=== PATIENT | male | born 2000 | race Caucasian/White ===

== ENCOUNTER 2019-08-05 06:54 | Emergency (ER) | payer OTHER ==
[2019-08-05] MEDS ORDERED: ADENOSINE 6 MG/ 2ML VIAL IV ONE ×2 (07:07→07:11)
[2019-08-05] MEDS ORDERED: NA CHLORIDE 0.9% 1,000 ML ONE (07:07)
[2019-08-05 07:26] LABS: Absolute Lymphocytes (CBC) 4.3 K/uL (0.7-4.9); Basophils % 0.9 % (0-1.3); Hematocrit 47.7 % (39.6-49.0); Lymphocytes % 36.2 % (15.3-44.8); MPV 7.5 fL (7.6-11.3); RBC Red Blood Cell Count 5.19 M/uL (4.33-5.43)
[2019-08-05 07:53] LABS: BUN Blood Urea Nitrogen 12 mg/dL (7-18); Bicarbonate 25 mmol/L (21-32); Glucose Level 96 mg/dL (74-106); Magnesium 1.9 mg/dL (1.8-2.4); NT PRO-BNP 31 pg/mL (<125); Potassium 3.1 mmol/L (3.5-5.1); Sodium Level 144 mmol/L (136-145); Troponin (Emerg Dept Use Only) < 0.02 ng/mL (0.0-0.045)
--- NOTE | 2019-08-05 08:00 | EKG ---
Test Date: 2019-08-05 Test Time: 07:05:39 Estimator Lumber: SUN MEASUREMENT RESULTS: Intervals: Rate: 226 AK: QRSD: 94 QT: 192 QTc: 372 [place]: P: AK: QRS: 86 T: 269 INTERPRETIVE STATEMENTS: Supraventricular tachycardia Incomplete right bundle branch block Marked ST abnormality, possible inferior subendocardial injury Marked ST abnormality, possible anterolateral subendocardial injury Abnormal ECG No previous ECG available for comparison Electronically Signed On 08-05-19 07:59:45 CDT by Tanner Leo
--- NOTE | 2019-08-05 08:00 | EKG ---
Test Date: 2019-08-05 Test Time: 07:14:13 Distribution Operations Manager: SUN MEASUREMENT RESULTS: Intervals: Rate: 102 FL: 132 QRSD: 106 QT: 326 QTc: 424 [place]: P: 53 FL: 132 QRS: 76 T: 19 INTERPRETIVE STATEMENTS: Sinus tachycardia Nonspecific ST abnormality Abnormal ECG Compared to ECG 08/05/2019 07:05:39 Supraventricular tachycardia no longer present Incomplete right bundle-branch block no longer present ST (T wave) deviation still present Electronically Signed On 08-05-19 07:59:43 CDT by Tanner Leo
--- NOTE | 2019-08-05 08:42 | RAD REPORT ---
EXAM DESCRIPTION: RAD - Chest Single View - 08/05/2019 7:40 am CLINICAL HISTORY: Arrhythmia, palpitations COMPARISON: None. TECHNIQUE: AP portable chest image was obtained 0722 hours . FINDINGS: Lungs are clear. Heart and vasculature are normal. No measurable pleural effusion and no p neumothorax. No acute bony abnormality seen. No acute aortic findings suspected. Resuscitation paddle s overlie the upper right chest and lower lateral left chest IMPRESSION: No acute cardiopulmonary process.
[2019-08-05] MEDS ORDERED: POTASSIUM CL SA 10 MEQ TAB PO ONE (08:46)
--- NOTE | 2019-08-05 09:00 | ER ---
Nurse's Notes [facility] Name: Anoop Mcguire Age: 18 yrs Sex: Male : 2000 Arrival Date: 08/05/2019 Time: 06:58 Bed 2 Private MD: Diagnosis: Supraventricular tachycardia Presentation: 08/05 07:00 Acuity: NICK 1 aa5 07:00 Method Of Arrival: Ambulatory aa5 07:14 Presenting complaint: Patient states: [place] my heart beating really fast and a little sg light headed, pt denies pain, denies N/V/D/Fever at this time. Transition of care: patient was not received from another setting of care. Onset of symptoms was August 05, 2019. Risk Assessment: Do you want to hurt yourself or someone else? Patient reports no desire to harm self or others. Initial Sepsis Screen: Does the patient meet any 2 criteria? HR > 90 bpm. Does the patient have a suspected source of infection? No. Patient's initial sepsis screen is negative. Care prior to arrival: None. Triage Assessment: 07:00 General: Appears in no apparent distress. uncomfortable, slender, well developed, sv Behavior is calm, cooperative, appropriate for age. Pain: Denies pain. Neuro: Level of Consciousness is awake, alert, obeys commands, Oriented to person, place, time, situation, Moves all extremities. Full function Gait is steady. Cardiovascular: Patient's skin is warm and dry. Rhythm is SVT. Respiratory: Respiratory effort is even, unlabored, Respiratory pattern is regular, symmetrical. Derm: Skin is pink, warm \T\ dry. Historical: - Allergies: 08:23 No Known Allergies; sv - PMHx: 08:23 None; sv - PSHx: 08:23 None; sv - Immunization history:: Adult Immunizations up to date. - Social history:: Smoking status: Patient/guardian denies using tobacco, Patient uses street drugs, marijuana. - Family history:: not pertinent. - Ebola Screening: : No symptoms or risks identified at this time. - Hospitalizations: : No recent hospitalization is reported. Screenin:30 Abuse screen: Denies threats or abuse. Denies injuries from another. Nutritional sv screening: No deficits noted. Tuberculosis screening: No symptoms or risk factors identified. Fall Risk None identified. Assessment: 07:30 Reassessment: Patient appears in no apparent distress at this time. Patient and/or sv family updated on plan of care and expected duration. Pain level reassessed. Patient is alert, oriented x 3, equal unlabored respirations, skin warm/dry/pink. Patient denies pain at this time. Patient states feeling better. Patient states symptoms have improved. Cardiovascular: Rhythm is sinus rhythm. 08:55 Reassessment: Patient appears in no apparent distress at this time. Patient and/or sv family updated on plan of care and expected duration. Pain level reassessed. Patient is alert, oriented x 3, equal unlabored respirations, skin warm/dry/pink. Patient denies pain at this time. Patient states feeling better. Patient states symptoms have improved. Cardiovascular: Rhythm is sinus rhythm. 09:13 Reassessment: Patient appears in no apparent distress at this time. Patient and/or sv family updated on plan of care and expected duration. Pain level reassessed. Patient is alert, oriented x 3, equal unlabored respirations, skin warm/dry/pink. Vital Signs: 07:00 Pulse 214; Resp 20 S; Pulse Ox 100% on R/A; aa5 07:02 BP 158 / 129; sv 07:14 BP 140 / 95; Pulse 113; Resp 21; Pulse Ox 98% on 2 lpm NC; Weight 67.13 kg; Height 5 sv ft. 10 in. (177.80 cm); 07:30 BP 132 / 91; Pulse 92; Resp 23; Pulse Ox 100% on 2 lpm NC; sv 08:00 BP 124 / 83; Pulse 91; Resp 24; Pulse Ox 100% on 2 lpm NC; sv 08:30 BP 111 / 66; Pulse 89; Resp 19; Pulse Ox 100% ; sv 07:14 Body Mass Index 21.24 (67.13 kg, 177.80 cm) sv ED Course: 06:58 Patient arrived in ED. ag3 06:59 Arm band placed on Patient placed in an exam room, on a stretcher. aa5 07:00 Kyle Schwartz, RN is Primary Nurse. jl7 07:00 cardiac monitor on. Pulse ox on. NIBP on. Head of bed elevated. sv 07:01 Oswald Thomas MD is Attending Physician. rn 07:05 Initial lab(s) drawn, by me, sent to lab. Inserted saline lock: 18 gauge in right sv antecubital area, using aseptic technique. Blood collected. Flushed right antecubital with 5 ml normal saline. 07:05 Oxygen administration via nasal cannula \T\ 2L/min. sv 07:15 Triage completed. sg 07:15 Arm band placed on right wrist. sg 07:17 Primary Nurse role handed off by Kyle Schwartz RN sv 07:17 Giovanna Winter RN is Primary Nurse. sv 07:30 Patient has correct armband on for positive identification. sv 07:55 XRAY Chest (1 view) In Process Unspecified. EDMS 09:13 No provider procedures requiring assistance completed. IV discontinued, intact, sv bleeding controlled, No redness/swelling at site. Pressure dressing applied. Administered Medications: 07:09 Drug: Adenocard 6 mg Route: IVP; Site: right antecubital; sv 07:12 Follow up: Response: No adverse reaction sv 07:09 Drug: NS 0.9% 1000 ml Route: IV; Rate: 1000 ml; Site: right antecubital; sv 08:00 Follow up: Response: No adverse reaction; IV Status: Completed infusion; IV Intake: sv 1000ml 07:12 Drug: Adenocard 12 mg Route: IVP; Site: right antecubital; sv 07:13 Follow up: Response: No adverse reaction; Marked relief of symptoms sv 08:51 Drug: Potassium Chloride 40 mEq Route: PO; sv 09:13 Follow up: Response: No adverse reaction sv Intake: 08:00 IV: 1000ml; Total: 1000ml. sv Outcome: 08:57 Discharge ordered by . rn 09:13 Discharged to home ambulatory, with friend. sv 09:13 Condition: stable 09:13 Discharge instructions given to patient, Instructed on discharge instructions, follow up and referral plans. Demonstrated understanding of instructions, follow-up care. 09:14 Patient left the ED. sv Signatures: Dispatcher [employer] EDCT Giovanna Winter RN RN sv Gay, Steven, RN RN sg Nieto, Roman, MD MD rn Calderon, Audri RN RN aa5 Kyle Schwartz RN RN jl7 Danii Wilkes ag3 Corrections: (The following items were deleted from the chart) 07:16 07:14 Acuity: NICK 1 zaida aa5 07:16 07:14 Method Of Arrival: Ambulatory sg aa5 08:24 07:14 BP 140 / 95; Pulse 113bpm; Resp 21bpm; Pulse Ox 98% 2 lpm Nasal Cannula; sv sv
--- NOTE | 2019-08-05 09:01 | EDPHYS ---
Physician Documentation [facility] Name: Anoop Mcguire Age: 18 yrs Sex: Male : 2000 Arrival Date: 08/05/2019 Time: 06:58 Bed 2 Private MD: ED Physician Oswald Thomas HPI: 08/05 08:12 This 18 yrs old Unknown Male presents to ER via Ambulatory with complaints of Irregular rn Pulse. 08:12 The patient presents with a history of heart racing. Context: The symptoms occur at rn rest. Onset: The symptoms/episode began/occurred 1 hour(s) ago. Duration: The patient or guardian reports a single episode, that is still ongoing. Modifying factors: The symptoms are aggravated by nothing. The symptoms are alleviated by nothing. Associated signs and symptoms: Pertinent positives: lightheadedness, Pertinent negatives: cough, fever, SOB. Severity of symptoms: At their worst the symptoms were moderate in the emergency department the symptoms are unchanged. The patient has experienced similar episodes in the past. Reports has had several episodes in past of palpitations, usually only lasts a few minutes, has been evaluated for this, never captured on ECG or monitor, has had neg w/u including ECHO. Denies famhx of cardiac problems. Was fishing today when began, now for about an hour. No chest pain. . Historical: - Allergies: 08:23 No Known Allergies; sv - PMHx: 08:23 None; sv - PSHx: 08:23 None; sv - Immunization history:: Adult Immunizations up to date. - Social history:: Smoking status: Patient/guardian denies using tobacco, Patient uses street drugs, marijuana. - Family history:: not pertinent. - Ebola Screening: : No symptoms or risks identified at this time. - Hospitalizations: : No recent hospitalization is reported. ROS: 08:12 Constitutional: Negative for fever, chills, and weight loss, Eyes: Negative for injury, rn pain, redness, and discharge, Neck: Negative for injury, pain, and swelling, Cardiovascular: + palpitations Respiratory: Negative for shortness of breath, cough, wheezing, and pleuritic chest pain, Abdomen/GI: Negative for abdominal pain, nausea, vomiting, diarrhea, and constipation, MS/Extremity: Negative for injury and deformity, Skin: Negative for injury, rash, and discoloration, Neuro: Negative for headache, weakness, numbness, tingling, and seizure. Exam: 08:12 Constitutional: This is a well developed, well nourished patient who is awake, alert, rn seems anxious Head/Face: Normocephalic, atraumatic. Eyes: Pupils equal round and reactive to light, extra-ocular motions intact. Lids and lashes normal. Conjunctiva and sclera are non-icteric and not injected. Cornea within normal limits. Periorbital areas with no swelling, redness, or edema. ENT: MMM, no oral trauma Cardiovascular: +tachycardic, regular, no murmur Respiratory: Lungs have equal breath sounds bilaterally, clear to auscultation. No increased work of breathing, no retractions or nasal flaring. Abdomen/GI: soft, non-tender Skin: Warm, dry MS/ Extremity: Pulses equal, no cyanosis. Neurovascular intact. Full, normal range of motion. Equal circumference. Neuro: Awake and alert, GCS 15, oriented to person, place, time, and situation. Cranial nerves II-XII grossly intact. Motor strength 5/5 in all extremities. Sensory grossly intact. Cerebellar exam normal. Normal gait. Vital Signs: 07:00 Pulse 214; Resp 20 S; Pulse Ox 100% on R/A; aa5 07:02 BP 158 / 129; sv 07:14 BP 140 / 95; Pulse 113; Resp 21; Pulse Ox 98% on 2 lpm NC; Weight 67.13 kg; Height 5 sv ft. 10 in. (177.80 cm); 07:30 BP 132 / 91; Pulse 92; Resp 23; Pulse Ox 100% on 2 lpm NC; sv 08:00 BP 124 / 83; Pulse 91; Resp 24; Pulse Ox 100% on 2 lpm NC; sv 08:30 BP 111 / 66; Pulse 89; Resp 19; Pulse Ox 100% ; sv 07:14 Body Mass Index 21.24 (67.13 kg, 177.80 cm) sv MDM: 07:01 Patient medically screened. rn 08:55 Differential diagnosis: arrythmia, dehydration, stress disorder. Data reviewed: vital rn signs, nurses notes, lab test result(s), EKG, radiologic studies, plain films, and as a result, I will discharge patient. Counseling: I had a detailed discussion with the patient and/or guardian regarding: the historical points, exam findings, and any diagnostic results supporting the discharge/admit diagnosis, lab results, radiology results, the need for outpatient follow up, to return to the emergency department if symptoms worsen or persist or if there are any questions or concerns that arise at home. Response to treatment: the patient's symptoms have resolved after treatment, the patient's condition has returned to base line, the patient is now symptom free, and as a result, I will discharge patient. Special discussion: I discussed with the patient/guardian in detail that at this point there is no indication for admission to the hospital. It is understood, however, that if the symptoms persist or worsen the patient needs to return immediately for re-evaluation. Based on the history and exam findings, there is no indication for further emergent testing or inpatient evaluation. I discussed with the patient/guardian the need to see the sugar coating hand for further evaluation of the symptoms. ED course: Patient with neg w/u other than low potassium, no indication for admission, cardioverted with adenosine, with normalization of ECG, and asymptomatic. Will dc home with f/u, told him to get in with electrophysiology as this is likely to happen again and last longer in future. Return precautions given and understood. . 08/05 07:15 Order name: Basic Metabolic Panel; Complete Time: 08:08/05 07:15 Order name: CBC with Diff 08/05 07:15 Order name: Magnesium; Complete Time: 08:08/05 07:15 Order name: NT PRO-BNP; Complete Time: 08:08/05 07:15 Order name: Troponin (emerg Dept Use Only); Complete Time: 08:08/05 07:15 Order name: TSH; Complete Time: 08:08/05 07:15 Order name: XRAY Chest (1 view); Complete Time: 08:50 08/05 07:15 Order name: EKG; Complete Time: 07:16 08/05 07:15 Order name: T4 Free; Complete Time: 08:08/05 08:11 Order name: EKG Electrocardiogram; Complete Time: 10:26 EDMS 08/05 07:15 Order name: Cardiac monitoring; Complete Time: 07:18 08/05 07:15 Order name: EKG - Nurse/Tech; Complete Time: 07:18 rn 08/05 07:15 Order name: IV Saline Lock; Complete Time: 07:18 rn 08/05 07:15 Order name: Labs collected and sent; Complete Time: 07:18 rn 08/05 07:15 Order name: O2 Per Protocol; Complete Time: 07:18 rn 08/05 07:15 Order name: O2 Sat Monitoring; Complete Time: 07:18 rn Administered Medications: 07:09 Drug: Adenocard 6 mg Route: IVP; Site: right antecubital; sv 07:12 Follow up: Response: No adverse reaction sv 07:09 Drug: NS 0.9% 1000 ml Route: IV; Rate: 1000 ml; Site: right antecubital; sv 08:00 Follow up: Response: No adverse reaction; IV Status: Completed infusion; IV Intake: sv 1000ml 07:12 Drug: Adenocard 12 mg Route: IVP; Site: right antecubital; sv 07:13 Follow up: Response: No adverse reaction; Marked relief of symptoms sv 08:51 Drug: Potassium Chloride 40 mEq Route: PO; sv 09:13 Follow up: Response: No adverse reaction sv Disposition: 08/05/19 08:57 Discharged to Home. Impression: Supraventricular tachycardia. - Condition is Stable. - Discharge Instructions: Paroxysmal Supraventricular Tachycardia, Paroxysmal Supraventricular Tachycardia, [id number]. - Medication Reconciliation Form, Thank You Letter, Antibiotic Education, Prescription Opioid Use form. - Follow up: Private Physician; When: As needed; Reason: Recheck today's complaints, Re-evaluation by your physician. - Problem is new. - Symptoms have improved. Critical care time excluding procedures: 08:58 Critical care time: Bedside Care: 30 minutes. Total time: 30 minutes rn Signatures: Dispatcher [employer] Giovanna Bowden RN RN Oswald Maddox MD MD varnish thinner: (The following items were deleted from the chart) 09:14 08:57 08/05/2019 08:57 Discharged to Home. Impression: Supraventricular tachycardia. sv Condition is Stable. Forms are Medication Reconciliation Form, Thank You Letter, Antibiotic Education, Prescription Opioid Use. Follow up: Private Physician; When: As needed; Reason: Recheck today's complaints, Re-evaluation by your physician. Problem is new. Symptoms have improved. rn
== END 2019-08-05 09:14 | disposition home or self-care (01) ==
LOC: ER 06:54
DX: I47.1 Supraventricular tachycardia (principal)
CPT/HCPCS: 96361; 93005 ×2; 85025; 80048; 36415; 83735; 84443; 84484; 84439; 83880; 71045; 96374; 99291; 99292; J0153 ×2; J7030

== ENCOUNTER 2019-10-23 10:44 | Emergency (ER) | payer OTHER, SELFPAY ==
[2019-10-23 11:29] LABS: Absolute Lymphocytes (CBC) 2.1 K/uL (0.7-4.9); Basophils % 0.4 % (0-1.3); Hematocrit 40.8 % (39.6-49.0); Lymphocytes % 22.1 % (15.3-44.8); MPV 7.8 fL (7.6-11.3); RBC Red Blood Cell Count 4.48 M/uL (4.33-5.43)
[2019-10-23 11:44] LABS: ALT/SGPT 15 U/L (12-78); AST/SGOT 10 U/L (15-37); Albumin 3.8 g/dL (3.4-5.0); Alkaline Phosphatase 100 U/L (45-117); BUN Blood Urea Nitrogen 18 mg/dL (7-18); Bicarbonate 26 mmol/L (21-32); Bilirubin Direct 0.2 mg/dL (0-0.2); Bilirubin Total 0.4 mg/dL (0.2-1.0); Glucose Level 88 mg/dL (74-106); Magnesium 2.1 mg/dL (1.8-2.4); NT PRO-BNP 57 pg/mL (<125); Potassium 4.2 mmol/L (3.5-5.1); Protein, Total 6.5 g/dL (6.4-8.2); Sodium Level 140 mmol/L (136-145); Troponin (Emerg Dept Use Only) < 0.02 ng/mL (0.0-0.045)
[2019-10-23 12:03] LABS: Protime INR 0.96
--- NOTE | 2019-10-23 12:22 | RAD REPORT ---
EXAM DESCRIPTION: [place] Single View10/23/2019 11:47 am CLINICAL HISTORY: Chest pain COMPARISON: August 2019 FINDINGS: The lungs appear clear of acute infiltrate. The heart is normal size IMPRESSION: No acute abnormalities displayed
--- NOTE | 2019-10-23 12:45 | EDPHYS ---
Physician Documentation [facility] Name: Anoop Mcguire Age: 19 yrs Sex: Male : 2000 Arrival Date: 10/23/2019 Time: 10:47 Bed 19 Private MD: ED Physician Enrrique Ly HPI: 10/23 10:57 This 19 yrs old Male presents to ER via Ambulatory with complaints of Chest jmm Pain. 10:57 The patient or guardian reports chest pain that is located primarily in the anterior [facility] chest wall, right. The pain does not radiate. Associated signs and symptoms: Pertinent positives:. The chest pain is described as aching. Duration: The patient or guardian reports a single episode, that is still ongoing. Modifying factors: The symptoms are alleviated by nothing. the symptoms are aggravated by nothing. This is a 19 year old male with a history of SVT that presents to the ED with complaints of right sided chest wall pain and swelling. Patient states the pain has been continues. Patient admits to a recent episode of vomiting with blood streaked vomit. Denies diarrhea. Patient states having transient abdominal pain which is now resolved. . Historical: - Allergies: 10:50 No Known Allergies; sv - Immunization history:: Adult Immunizations up to date. - Social history:: Smoking status: Patient uses tobacco products, denies chronic smoking, but will smoke occasionally. - Ebola Screening: : Patient negative for fever greater than or equal to 101.5 degrees Fahrenheit, and additional compatible Ebola Virus Disease symptoms Patient denies exposure to infectious person Patient denies travel to an Ebola-affected area in the 21 days before illness onset No symptoms or risks identified at this time. ROS: 10:57 Constitutional: Negative for fever, chills, and weight loss. jmm 10:57 Cardiovascular: Positive for chest pain. 10:57 Abdomen/GI: Positive for vomiting. 10:57 All other systems are negative. Exam: 10:57 Head/Face: atraumatic. Eyes: EOMI, no conjunctival erythema appreciated ENT: Moist jmm Mucus Membranes Neck: Trachea midline, Supple 10:57 Cardiovascular: Regular rate and rhythm. No edema appreciated Respiratory: Normal respirations, no respiratory distress appreciated 10:57 Back: Normal ROM Skin: General appearance color normal MS/ Extremity: Moves all extremities, no obvious deformities appreciated, no edema noted to the lower extremities Neuro: Awake and alert, normal gait Psych: Behavior is normal, Mood is normal, Patient is cooperative and pleasant 10:57 Constitutional: The patient appears in no acute distress, alert, awake. 10:57 Chest/axilla: swelling noted to the right anterior chest wall. 10:57 Abdomen/GI: Inspection: abdomen appears normal, Bowel sounds: normal, Palpation: abdomen is soft and non-tender, in all quadrants. Vital Signs: 10:50 BP 139 / 76; Pulse 86; Resp 22; Temp 97.8; Pulse Ox 100% ; Weight 67.59 kg; Height 5 sv ft. 10 in. (177.80 cm); 12:00 BP 133 / 82; Pulse 68; Resp 18; Pulse Ox 99% on R/A; Pain 8/10; em 10:50 Body Mass Index 21.38 (67.59 kg, 177.80 cm) sv MDM: 11:01 Patient medically screened. [facility] 12:40 Data reviewed: vital signs, nurses notes, lab test result(s), EKG, radiologic studies, [facility] plain films. Counseling: I had a detailed discussion with the patient and/or guardian regarding: the historical points, exam findings, and any diagnostic results supporting the discharge/admit diagnosis, lab results, radiology results, the need for outpatient follow up, to return to the emergency department if symptoms worsen or persist or if there are any questions or concerns that arise at home. ED course: Labs unremarkable. Guac negative. Right chest wall swelling is appreciated. Possibly due to a cyst. Patient is advised to return to the ED if redness or increased swelling develops. I do not currently suspect cellulitis or abscess. Cardiac enzymes negative. . 10/23 10:57 Order name: Basic Metabolic Panel; Complete Time: 11:53 [facility] 10/23 10:57 Order name: CBC with Diff; Complete Time: 11:34 [facility] 10/23 10:57 Order name: LFT's; Complete Time: 11:53 [facility] 10/23 10:57 Order name: Magnesium; Complete Time: 11:53 [facility] 10/23 10:57 Order name: NT PRO-BNP; Complete Time: 11:53 [facility] 10/23 10:57 Order name: PT-INR; Complete Time: 12:07 [facility] 10/23 10:57 Order name: Troponin (emerg Dept Use Only); Complete Time: 11:53 [facility] 10/23 10:57 Order name: XRAY Chest (1 view); Complete Time: 12:32 [facility] 10/23 10:57 Order name: Cardiac monitoring; Complete Time: 11: [facility] 10/23 10:57 Order name: EKG - Nurse/Tech; Complete Time: 11:27 [facility] 10/23 10:57 Order name: IV Saline Lock; Complete Time: 11: [facility] 10/23 10:57 Order name: Labs collected and sent; Complete Time: 11: [facility] 10/23 10:57 Order name: O2 Per Protocol; Complete Time: 11:29 [facility] 10/23 10:57 Order name: O2 Sat Monitoring; Complete Time: 11: [facility] 10/23 11:30 Order name: Labs - recollect needed; Complete Time: 11:53 ss Administered Medications: No medications were administered Disposition: 13: Co-signature as Attending Physician, Enrrique Ly MD I agree with the assessment and kdr plan of care. Disposition: 10/23/19 12:44 Discharged to Home. Impression: Hematemesis, Chest pain, unspecified. - Condition is Stable. - Discharge Instructions: Nonspecific Chest Pain, Chest Wall Pain. - Prescriptions for omeprazole 40 mg Oral capsule,delayed release(DR/EC) - take 1 capsule by ORAL route once daily before a meal; 30 capsule. - Medication Reconciliation Form, Thank You Letter, Antibiotic Education, Prescription Opioid Use form. - Follow up: Hortensia Fuentes MD; When: 2 - 3 days; Reason: Recheck today's complaints, Continuance of care, Re-evaluation by your physician. Signatures: Dispatcher [employer] Giovanna Bowden, RN RN Enrrique Ulloa MD MD kdr Mickail, Joel, PA PA Beny Ryan, TRANSIT PLANNING DIRECTOR TRANSIT PLANNING DIRECTOR Sarah Sutton RN RN ss Corrections: (The following items were deleted from the chart) 13:01 12:44 10/23/2019 12:44 Discharged to Home. Impression: Hematemesis; Chest pain, em unspecified. Condition is Stable. Forms are Medication Reconciliation Form, Thank You Letter, Antibiotic Education, Prescription Opioid Use. Follow up: Hortensia Fuentes; When: 2 - 3 days; Reason: Recheck today's complaints, Continuance of care, Re-evaluation by your physician. ethan
--- NOTE | 2019-10-23 12:45 | ER ---
Nurse's Notes [facility] Name: Anoop Mcguire Age: 19 yrs Sex: Male : 2000 Arrival Date: 10/23/2019 Time: 10:47 Bed 19 Private MD: Diagnosis: Hematemesis;Chest pain, unspecified Presentation: 10/23 10:49 Presenting complaint: Patient states: chest pain and a "knot in my chest" came up this sv morning and started vomiting blood. Transition of care: patient was not received from another setting of care. Onset of symptoms was October 23, 2019. Risk Assessment: Do you want to hurt yourself or someone else? Patient reports no desire to harm self or others. Care prior to arrival: None. 10:49 Method Of Arrival: Ambulatory sv 10:49 Acuity: NICK 3 sv 11:30 Initial Sepsis Screen: Does the patient meet any 2 criteria? No. Patient's initial em sepsis screen is negative. Does the patient have a suspected source of infection? No. Patient's initial sepsis screen is negative. Historical: - Allergies: 10:50 No Known Allergies; sv - Immunization history:: Adult Immunizations up to date. - Social history:: Smoking status: Patient uses tobacco products, denies chronic smoking, but will smoke occasionally. - Ebola Screening: : Patient negative for fever greater than or equal to 101.5 degrees Fahrenheit, and additional compatible Ebola Virus Disease symptoms Patient denies exposure to infectious person Patient denies travel to an Ebola-affected area in the 21 days before illness onset No symptoms or risks identified at this time. Screenin:30 Abuse screen: Denies threats or abuse. Nutritional screening: No deficits noted. em Tuberculosis screening: No symptoms or risk factors identified. Fall Risk None identified. Assessment: 11:30 General: Appears in no apparent distress. comfortable, Behavior is calm, cooperative, em Denies fever. Pain: Complains of pain in chest Pain does not radiate. Pain began 4 hours ago. Neuro: Level of Consciousness is awake, alert, obeys commands, Oriented to person, place, time, situation, Appropriate for age. Cardiovascular: Reports chest pain, Heart tones S1 S2 present Capillary refill < 3 seconds Patient's skin is warm and dry. Rhythm is sinus rhythm. Respiratory: Airway is patent Respiratory effort is even, unlabored, Respiratory pattern is regular, symmetrical, Breath sounds are clear bilaterally. GI: Patient currently denies nausea, vomiting. Derm: Skin is intact, is healthy with good turgor, Skin is pink, warm \\T\\ dry. Musculoskeletal: Capillary refill < 3 seconds, Range of motion: intact in all extremities. 11:40 General: The previous assessment is accurate. Call light remains within reach.. ss 12:22 Reassessment: Patient appears in no apparent distress at this time. Patient and/or em family updated on plan of care and expected duration. Pain level reassessed. Patient is alert, oriented x 3, equal unlabored respirations, skin warm/dry/pink. Vital Signs: 10:50 BP 139 / 76; Pulse 86; Resp 22; Temp 97.8; Pulse Ox 100% ; Weight 67.59 kg; Height 5 sv ft. 10 in. (177.80 cm); 12:00 BP 133 / 82; Pulse 68; Resp 18; Pulse Ox 99% on R/A; Pain 8/10; em 10:50 Body Mass Index 21.38 (67.59 kg, 177.80 cm) sv ED Course: 10:47 Patient arrived in ED. mr 10:50 Triage completed. sv 10:52 Beny Bonilla LVN is Primary Nurse. em 10:56 Kenn Maynard PA is PHCP. [facility] 10:56 Enrrique Ly MD is Attending Physician. [facility] 11:12 EKG done, by computer system technician. reviewed by Enrrique Ly MD. at1 11:25 Initial lab(s) drawn, by mt, sent to lab. Inserted saline lock: 20 gauge in right 5 antecubital area, using aseptic technique. Blood collected. 11:25 Patient has correct armband on for positive identification. Bed in low position. Call [facility] light in reach. Side rails up X 1. Adult w/ patient. environmental monitoring technician on. Pulse ox on. NIBP on. 11:26 Basic Metabolic Panel Sent. [facility] 11:26 CBC with Diff Sent. 5 11:26 LFT's Sent. [facility] 11:26 Magnesium Sent. [facility] 11:26 NT PRO-BNP Sent. [facility] 11:26 PT-INR Sent. [facility] 11:26 Troponin (emerg Dept Use Only) Sent. [facility] 11:30 Patient maintains SpO2 saturation greater than 95% on room air. em 11:30 Arm band placed on. em 11:48 XRAY Chest (1 view) In Process Unspecified. EDMS 12:43 Hortensia Fuentes MD is Referral Physician. m 12:59 No provider procedures requiring assistance completed. IV discontinued, intact, em bleeding controlled, No redness/swelling at site. Pressure dressing applied. Administered Medications: No medications were administered Outcome: 12:44 Discharge ordered by . [facility] 13:00 Discharged to home ambulatory. em 13:00 Condition: good 13:00 Discharge instructions given to patient, Instructed on discharge instructions, follow up and referral plans. medication usage, Demonstrated understanding of instructions, follow-up care, medications, Prescriptions given X 1. 13:01 Patient left the ED. em Signatures: Dispatcher [employer] EDMS Giovanna Winter, RN RN Kenn Garcia PA PA jmm Rivera, Mary mr Munoz, Beny, POWER SHOVEL ENGINEER POWER SHOVEL ENGINEER em Sarah Head RN RN ss Gonzales, Amanda, health technical writer EKG [facility]
[2019-10-23 13:36] VITALS: TEMP 97.8
[2019-10-23 13:37] VITALS: BP 133/82; O2SAT 99
--- NOTE | 2019-10-24 14:22 | EKG ---
Test Date: 2019-10-23 Test Time: 10:52:27 Assistant Auditor: SUN MEASUREMENT RESULTS: Intervals: Rate: 81 MS: 146 QRSD: 106 QT: 366 QTc: 425 [place]: P: 63 MS: 146 QRS: 75 T: 49 INTERPRETIVE STATEMENTS: Normal sinus rhythm Normal ECG Compared to ECG 08/05/2019 07:14:13 Sinus tachycardia no longer present ST (T wave) deviation no longer present Electronically Signed On 10-24-19 14:19:30 SAFETY PATROL OFFICER by Chemo Trivedi
== END 2019-10-23 13:01 | disposition home or self-care (01) ==
LOC: ER 10:44
DX: K92.0 Hematemesis (principal); Z72.0 Tobacco use
CPT/HCPCS: 36415; 71045; 80048; 80076; 83735; 83880; 84484; 85025; 85610; 93005; 99285

== ENCOUNTER 2019-11-28 03:10 | Emergency (ER) | payer SELFPAY ==
[2019-11-28] MEDS ORDERED: NA CHLORIDE 0.9% 1,000 ML ONE ×2 (04:25→06:26)
[2019-11-28] MEDS ORDERED: DIPHENHYDRAMINE 25 MG TAB/CAP ONE (04:25)
[2019-11-28 05:06] LABS: Absolute Lymphocytes (CBC) 2.1 K/uL (0.7-4.9); Basophils % 0.4 % (0-1.3); Hematocrit 44.7 % (39.6-49.0); Lymphocytes % 30.7 % (15.3-44.8); MPV 7.8 fL (7.6-11.3)
[2019-11-28 05:07] LABS: Protime INR 1.16
[2019-11-28 05:52] LABS: ALT/SGPT 26 U/L (12-78); AST/SGOT 19 U/L (15-37); Albumin 4.1 g/dL (3.4-5.0); Alkaline Phosphatase 82 U/L (45-117); BUN Blood Urea Nitrogen 14 mg/dL (7-18); Bicarbonate 27 mmol/L (21-32); Bilirubin Direct 0.3 mg/dL (0-0.2); Bilirubin Total 1.1 mg/dL (0.2-1.0); Glucose Level 85 mg/dL (74-106); Potassium 3.8 mmol/L (3.5-5.1); Protein, Total 7.8 g/dL (6.4-8.2); Sodium Level 141 mmol/L (136-145)
[2019-11-28] MEDS ORDERED: guaiFENesin 100 MG/5 ML UCUP ONE (06:13)
[2019-11-28 07:05] LABS: Barbiturates NEGATIVE (NEGATIVE); Benzodiazepines NEGATIVE (NEGATIVE); Cocaine NEGATIVE (NEGATIVE); METHAMPHETAM POSITIVE (NEGATIVE); Methadone NEGATIVE (NEGATIVE); Opiates NEGATIVE (NEGATIVE); Phencyclidine NEGATIVE (NEGATIVE); THC Cannibis POSITIVE (NEGATIVE)
--- NOTE | 2019-11-28 07:38 | ER ---
Nurse's Notes [facility] Name: Anoop Mcguire Age: 19 yrs Sex: Male : 2000 Arrival Date: 11/28/2019 Time: 03:12 Bed 7 Private MD: Diagnosis: Suicidal ideations-resolved;Abuse of other non-psychoactive substances Presentation: 11/28 03:22 Presenting complaint: Patient states: he has suicidal thoughts and previous attempts pt bb states he has put a gun to his head and tried to hang himself but someone has always intervened in the past pt also has been doing meth x 4 days now. Transition of care: patient was not received from another setting of care. Onset of symptoms is unknown. Risk Assessment: Do you want to hurt yourself or someone else? Patient reports desire/thoughts of hurting themselves or someone else. Provider notified. Initial Sepsis Screen: Does the patient meet any 2 criteria? No. Patient's initial sepsis screen is negative. Does the patient have a suspected source of infection? No. Patient's initial sepsis screen is negative. Care prior to arrival: None. 03:22 Method Of Arrival: Ambulatory bb 03:22 Acuity: NICK 2 bb 03:28 Note pt now states he has not slept much or eaten much or had much to drink in the last bb few days and he is having hallucinations. Historical: - Allergies: 03:26 No Known Allergies; bb - Home Meds: 03:26 None [Active]; bb - PMHx: 03:26 None; bb - PSHx: 03:26 Tonsillectomy; bb - Immunization history:: Adult Immunizations up to date. - Social history:: Smoking status: Patient uses tobacco products, smokes two packs cigarettes per day. Patient uses alcohol, but reports only rare drinking. - Ebola Screening: : No symptoms or risks identified at this time. Screenin:52 Abuse screen: Denies threats or abuse. Nutritional screening: No deficits noted. jd3 Tuberculosis screening: No symptoms or risk factors identified. Fall Risk Ambulatory Aid- None/Bed Rest/Nurse Assist (0 pts). Gait- Normal/Bed Rest/Wheelchair (0 pts) Mental Status- Oriented to own ability (0 pts). Total Qu[place] Fall Scale indicates No Risk (0-24 pts). Assessment: 03:49 General: Appears in no apparent distress. comfortable, Behavior is calm, cooperative, jd3 appropriate for age. Pain: Denies pain. Neuro: Level of Consciousness is awake, alert, obeys commands, Oriented to person, place, time, situation. Cardiovascular: Denies chest pain, Capillary refill < 3 seconds Patient's skin is warm and dry. 03:51 Respiratory: Airway is patent Respiratory effort is even, unlabored, Respiratory jd3 pattern is regular, symmetrical, Denies cough, shortness of breath. GI: No signs and/or symptoms were reported involving the gastrointestinal system. : No signs and/or symptoms were reported regarding the genitourinary system. EENT: No signs and/or symptoms were reported regarding the EENT system. Derm: Skin is intact, Skin is dry, Skin is normal, Skin temperature is warm. Musculoskeletal: Circulation, motion, and sensation intact. Range of motion: intact in all extremities. 04:25 Reassessment: Patient appears in no apparent distress at this time. Patient and/or jd3 family updated on plan of care and expected duration. Pain level reassessed. Patient is alert, oriented x 3, equal unlabored respirations, skin warm/dry/pink. pt asking for medication to help him sleep. pt reporting he has not slept in 5 days. provider notified. 05:00 Reassessment: Patient appears in no apparent distress at this time. No changes from jd3 previously documented assessment. Patient and/or family updated on plan of care and expected duration. Pain level reassessed. Patient is alert, oriented x 3, equal unlabored respirations, skin warm/dry/pink. 06:00 Reassessment: Patient appears in no apparent distress at this time. No changes from jd3 previously documented assessment. Patient and/or family updated on plan of care and expected duration. Pain level reassessed. Patient is alert, oriented x 3, equal unlabored respirations, skin warm/dry/pink. 06:13 Reassessment: pt reporting cough congestion. provider notified. jd3 07:00 Reassessment: Patient appears in no apparent distress at this time. at sg bedside evaluating pt at this time. 07:20 Reassessment: Patient appears in no apparent distress at this time. [facility] evaluation at bedside. 07:39 Reassessment: Patient appears in no apparent distress at this time. Patient and/or sv family updated on plan of care and expected duration. Pain level reassessed. Patient is alert, oriented x 3, equal unlabored respirations, skin warm/dry/pink. Pt and fiance report that they will be giving a [facility] a call to see when they can see him. Pt instructed to return to the closest ER if starts having these thoughts again. Psych: 03:39 Subjective: Patient's mood is irritable, Hallucinations are auditory, visual. bb Objective: Patient is cooperative, Speech is normal. Interventions: Removed personal items and placed in bag. Patient placed in hospital gown. Belonging list filled out. Suicide Risk Assessment: Sad Person Scale: Sex of patient: Male: Score 1 point. Age of patient: Score 1 point if patient 15-34. Depression: Score 1 point if signs of depression are present. Previous Attempt: Score 1 point if patient has previously attempted suicide. Substance Abuse: Score 1 point if patient abuses alcohol or drugs. Rational Thinking: Score 1 point if patient is lacking rational thinking. Social Support: Score 0 if social support is present/available. Organized Plan: Score 1 point if patient had a plan in place. TOTAL POINTS: If total points are 5-6, proposed clinical action is to strongly consider hospitalization, depending upon confidence in the follow-up arrangement. Implement suicide precautions. Safety Checks: Personal items have been removed. Door is open. Visitors are present. Patient uses marijuana Patient uses methamphetamines 4 day binge. Vital Signs: 03:26 BP 127 / 82; Pulse 95; Resp 16 S; Temp 98(O); Pulse Ox 99% on R/A; Weight 59.87 kg (R); bb Height 5 ft. 9 in. (175.26 cm) (R); Pain 3/10; 03:26 Body Mass Index 19.49 (59.87 kg, 175.26 cm) bb ED Course: 03:12 Patient arrived in ED. es 03:16 Norm Urbano MD is Attending Physician. tw4 03:26 Triage completed. bb 03:26 Arm band placed on Patient placed in an exam room, on a stretcher, on pulse oximetry. bb Family accompanied patient. 03:30 doing safety checks on paper chart. mw2 03:41 Inserted saline lock: 20 gauge in right antecubital area, using aseptic technique. mw2 Blood collected. 03:45 Reza Cordon, RN is Primary Nurse. jd3 03:52 Patient has correct armband on for positive identification. Placed in gown. Bed in low jd3 position. Side rails up X 1. Adult w/ patient. Valuables inventory done. Locked in safe. See valuables checklist. 06:48 Attending Physician role handed off by Norm Urbano MD [facility] 06:48 Omero Ramirez MD is Attending Physician. jeri 07:40 No provider procedures requiring assistance completed. IV discontinued, intact, sv bleeding controlled, No redness/swelling at site. Pressure dressing applied. Administered Medications: 04:26 Drug: NS 0.9% 1000 ml Route: IV; Rate: 1 bolus; Site: right antecubital; jd3 06:27 Follow up: Response: No adverse reaction; IV Status: Completed infusion; IV Intake: jd3 1000ml 04:26 Drug: Benadryl 25 mg Route: PO; jd3 05:25 Follow up: Response: No adverse reaction jd3 06:13 Drug: Robitussin Pediatric 5 mg Route: PO; jd3 06:27 Drug: NS 0.9% 1000 ml Route: IV; Rate: 1 bolus; Site: right antecubital; jd3 Intake: 06:27 IV: 1000ml; Total: 1000ml. jd3 Outcome: 07:08 Discharge ordered by . jeri 07:40 Discharged to home ambulatory. sv 07:40 Condition: stable 07:40 Discharge instructions given to patient, Instructed on discharge instructions, follow up and referral plans. Demonstrated understanding of instructions, follow-up care. 07:58 Patient left the ED. sg Signatures: Giovanna Winter RN RN sv Gay, Steven RN Omero José MD MD cha Salyer, Edna es Ballard, Brenda, RN RN bb Reza Cordon RN RN jd3 Wadley, Terrence, MD MD tw4 [facility] Corrections: (The following items were deleted from the chart) 03:52 03:49 General: Appears in no apparent distress. comfortable, Behavior is calm, jd3 cooperative, appropriate for age, jd3 03:52 03:49 Cardiovascular: Capillary refill < 3 seconds Patient's skin is warm and dry. jd3 jd3 03:54 03:22 Risk Assessment: Do you want to hurt yourself or someone else? Patient reports no bb desire to harm self or others. bb 04:35 04:30 Reassessment: pt asking for medication to help him sleep. pt reporting he has not jd3 slept in 5 days. provider notified. jd3
--- NOTE | 2019-11-28 07:39 | EDPHYS ---
Physician Documentation [facility] Name: Anoop Mcguire Age: 19 yrs Sex: Male : 2000 Arrival Date: 11/28/2019 Time: 03:12 Bed 7 Private MD: KEYSHA Physician Omero Ramirez HPI: 11/28 06:06 This 19 yrs old Male presents to ER via Ambulatory with complaints of tw4 Suicidal Ideation. 06:06 The patient presents to the emergency department with suicide ideation, but the patient tw4 has no formulated plan. Onset: The symptoms/episode began/occurred today. Past psychiatric history: Prior diagnosis: depression. Associated signs and symptoms: The patient has no apparent associated signs or symptoms. The patient has not experienced similar symptoms in the past. Historical: - Allergies: 03:26 No Known Allergies; bb - Home Meds: :26 None [Active]; bb - PMHx: :26 None; bb - PSHx: 03:26 Tonsillectomy; bb - Immunization history:: Adult Immunizations up to date. - Social history:: Smoking status: Patient uses tobacco products, smokes two packs cigarettes per day. Patient uses alcohol, but reports only rare drinking. - Ebola Screening: : No symptoms or risks identified at this time. ROS: 06:06 Constitutional: Negative for fever, chills, and weight loss, Eyes: Negative for injury, tw4 pain, redness, and discharge, Cardiovascular: Negative for chest pain, palpitations, and edema, Respiratory: Negative for shortness of breath, cough, wheezing, and pleuritic chest pain, Abdomen/GI: Negative for abdominal pain, nausea, vomiting, diarrhea, and constipation, Back: Negative for injury and pain, MS/Extremity: Negative for injury and deformity, Skin: Negative for injury, rash, and discoloration. 06:06 Psych: Positive for suicidal ideation. Exam: 06:06 Constitutional: This is a well developed, well nourished patient who is awake, alert, tw4 and in no acute distress. Head/Face: Normocephalic, atraumatic. Chest/axilla: Normal chest wall appearance and motion. Nontender with no deformity. No lesions are appreciated. Cardiovascular: Regular rate and rhythm with a normal S1 and S2. No gallops, murmurs, or rubs. Normal PMI, no JVD. No pulse deficits. Respiratory: Lungs have equal breath sounds bilaterally, clear to auscultation and percussion. No rales, rhonchi or wheezes noted. No increased work of breathing, no retractions or nasal flaring. Abdomen/GI: Soft, non-tender, with normal bowel sounds. No distension or tympany. No guarding or rebound. No evidence of tenderness throughout. Back: No spinal tenderness. No costovertebral tenderness. Full range of motion. MS/ Extremity: Pulses equal, no cyanosis. Neurovascular intact. Full, normal range of motion. Neuro: Awake and alert, GCS 15, oriented to person, place, time, and situation. Cranial nerves II-XII grossly intact. Motor strength 5/5 in all extremities. Sensory grossly intact. Cerebellar exam normal. Normal gait. Vital Signs: 03:26 BP 127 / 82; Pulse 95; Resp 16 S; Temp 98(O); Pulse Ox 99% on R/A; Weight 59.87 kg (R); bb Height 5 ft. 9 in. (175.26 cm) (R); Pain 3/10; 03:26 Body Mass Index 19.49 (59.87 kg, 175.26 cm) bb MDM: 06:06 Differential diagnosis: drug withdrawal. depression. Data reviewed: vital signs, nurses tw4 notes. Counseling: I had a detailed discussion with the patient and/or guardian regarding: the historical points, exam findings, and any diagnostic results supporting the discharge/admit diagnosis. Special discussion:. 06:48 Patient medically screened. jeri 11/28 03:17 Order name: Acetaminophen; Complete Time: 07:04 11/28 03:17 Order name: Basic Metabolic Panel; Complete Time: 07:04 11/28 03:17 Order name: CBC with Diff; Complete Time: 07:04 11/28 03:17 Order name: ETOH Level; Complete Time: 07:04 11/28 03:17 Order name: Hepatic Function; Complete Time: 07:04 11/28 03:17 Order name: PT-INR; Complete Time: 07:04 11/28 03:17 Order name: Ptt, Activated; Complete Time: 07:04 11/28 03:17 Order name: Salicylate; Complete Time: 07:04 11/28 03:17 Order name: Urine Drug Screen; Complete Time: 07:06 4 11/28 06:44 Order name: Urine Dipstick--Ancillary (enter results) 11/28 03:17 Order name: EKG; Complete Time: 03:18 4 11/28 03:17 Order name: EKG - Nurse/Tech; Complete Time: 03:45 tw4 11/28 03:17 Order name: IV Saline Lock; Complete Time: 03:45 4 11/28 03:17 Order name: Labs collected and sent; Complete Time: 03:45 4 11/28 03:17 Order name: Urine Dipstick-Ancillary (obtain specimen); Complete Time: 06:43 tw4 Administered Medications: 04:26 Drug: NS 0.9% 1000 ml Route: IV; Rate: 1 bolus; Site: right antecubital; jd3 06:27 Follow up: Response: No adverse reaction; IV Status: Completed infusion; IV Intake: jd3 1000ml 04:26 Drug: Benadryl 25 mg Route: PO; jd3 05:25 Follow up: Response: No adverse reaction jd3 06:13 Drug: Robitussin Pediatric 5 mg Route: PO; jd3 06:27 Drug: NS 0.9% 1000 ml Route: IV; Rate: 1 bolus; Site: right antecubital; jd3 Disposition: 11/28/19 07:08 Discharged to Home. Impression: Suicidal ideations - resolved, Abuse of other non-psychoactive substances. - Condition is Stable. - Discharge Instructions: Substance Use Disorder, Helping Someone Who is Suicidal. - Medication Reconciliation Form, Thank You Letter, Antibiotic Education, Prescription Opioid Use form. - Follow up: Private Physician; When: 2 - 3 days; Reason: Recheck today's complaints, Continuance of care, Re-evaluation by your physician. - Problem is new. - Symptoms have improved. Signatures: Dispatcher [employer] EDNikita Khan, Omero José RN, MD MD cha Ballard, Brenda, RN RN bb Davies, Jonathon, RN RN jd3 Wadley, Terrence, MD MD tw4 Corrections: (The following items were deleted from the chart) 07:58 07:08 11/28/2019 07:08 Discharged to Home. Impression: Suicidal ideations - resolved; sg Abuse of other non-psychoactive substances. Condition is Stable. Forms are Medication Reconciliation Form, Thank You Letter, Antibiotic Education, Prescription Opioid Use. Follow up: Private Physician; When: 2 - 3 days; Reason: Recheck today's complaints, Continuance of care, Re-evaluation by your physician. Problem is new. Symptoms have improved. jeri
[2019-11-28 08:07] VITALS: BP 127/82; TEMP 98; O2SAT 99
[2019-11-28 09:34] LABS: Urine Blood NEGATIVE (NEG); Urine Glucose NEGATIVE (NEG); Urine Protein 1+ (NEG); Urine Specific Gravity 1.025 (1.005-1.030); Urine pH 5.5 (5.0-7.0)
--- NOTE | 2019-11-29 11:46 | EKG ---
Test Date: 2019-11-28 Test Time: 03:38:55 Cut File Clerk: MONTRELL MEASUREMENT RESULTS: Intervals: Rate: 79 HI: 136 QRSD: 104 QT: 372 QTc: 426 [place]: P: 67 HI: 136 QRS: 77 T: 44 INTERPRETIVE STATEMENTS: Normal sinus rhythm with sinus arrhythmia Incomplete right bundle branch block Borderline ECG Compared to ECG 10/23/2019 10:52:27 Incomplete right bundle-branch block now present Electronically Signed On 11-29-19 11:42:18 CASEWORK MANAGER by Chemo Trivedi
== END 2019-11-28 07:58 | disposition home or self-care (01) ==
LOC: ER 03:10
DX: F55.8 Abuse of other non-psychoactive substances (principal); F17.210 Nicotine dependence, cigarettes, uncomplicated
CPT/HCPCS: 36415; 80048; 80076; 80307; 80320; 80329; 81003; 85025; 85610; 85730; 93005; 96360; 96361; 99285; J7030

== ENCOUNTER 2020-06-25 22:32 | Emergency (ER) | payer SELFPAY ==
[2020-06-25 23:05] LABS: Urine Blood 2+ (NEG); Urine Glucose NEGATIVE (NEG); Urine Protein 1+ (NEG); Urine Specific Gravity >1.030 (1.005-1.030); Urine pH 5.5 (5.0-7.0)
[2020-06-25] MEDS ORDERED: metroNIDAZOLE 500 MG TABLET ONE (23:08)
[2020-06-25] MEDS ORDERED: CEFTRIAXONE 250 MG/VIAL ONE (23:09)
[2020-06-25] MEDS ORDERED: ONDANSETRON 4 MG (ODT) TAB ONE (23:09)
[2020-06-25] MEDS ORDERED: WATER FOR INJ,STERILE 10 ML ONE (23:09)
[2020-06-25] MEDS ORDERED: AZITHROMYCIN 250 MG TAB ONE (23:11)
--- NOTE | 2020-06-25 23:12 | EDPHYS ---
Physician Documentation [facility] Name: Anoop Mcguire Age: 19 yrs Sex: Male : 2000 Arrival Date: 06/25/2020 Time: 22:34 Bed 5 Private MD: ED Physician Norm Urbano HPI: 06/26 00:06 This 19 yrs old Male presents to ER via Ambulatory with complaints of STD snw Exposure. 00:06 The patient presents with urinary symptoms, dysuria. Onset: The symptoms/episode snw began/occurred 1 week(s) ago, and became persistent. Modifying factors: The symptoms are alleviated by nothing. Severity of symptoms: At their worst the symptoms were moderate. The patient has not experienced similar symptoms in the past, but friend has similar symptoms. The patient has not recently seen a physician. Historical: - Allergies: 06/25 22:46 No Known Allergies; jd3 - Home Meds: 22:46 None [Active]; jd3 - PMHx: 22:46 None; jd3 - PSHx: 22:46 Tonsillectomy; jd3 - Immunization history:: Adult Immunizations up to date. - Social history:: Smoking status: Patient reports the use of cigarette tobacco products, smokes one-half pack cigarettes per day. ROS: 06/26 00:04 Constitutional: Negative for fever, chills, and weight loss, Eyes: Negative for injury, snw pain, redness, and discharge, ENT: Negative for injury, pain, and discharge, Neck: Negative for injury, pain, and swelling, Cardiovascular: Negative for chest pain, palpitations, and edema, Respiratory: Negative for shortness of breath, cough, wheezing, and pleuritic chest pain, Abdomen/GI: Negative for abdominal pain, nausea, vomiting, diarrhea, and constipation, Back: Negative for injury and pain, MS/Extremity: Negative for injury and deformity, Skin: Negative for injury, rash, and discoloration, Neuro: Negative for headache, weakness, numbness, tingling, and seizure, Psych: Negative for depression, anxiety, suicide ideation, homicidal ideation, and hallucinations. : Positive for urinary symptoms, penile discharge, s/p unprotected intercourse. Exam: 00:04 Constitutional: This is a well developed, well nourished patient who is awake, alert, snw and in no acute distress. Head/Face: Normocephalic, atraumatic. Eyes: Pupils equal round and reactive to light, extra-ocular motions intact. Lids and lashes normal. Conjunctiva and sclera are non-icteric and not injected. Cornea within normal limits. Periorbital areas with no swelling, redness, or edema. ENT: Nares patent. No nasal discharge, no septal abnormalities noted. Tympanic membranes are normal and external auditory canals are clear. Oropharynx with no redness, swelling, or masses, exudates, or evidence of obstruction, uvula midline. Mucous membranes moist. Neck: Trachea midline, no thyromegaly or masses palpated, and no cervical lymphadenopathy. Supple, full range of motion without nuchal rigidity, or vertebral point tenderness. No Meningismus. Chest/axilla: Normal chest wall appearance and motion. Nontender with no deformity. No lesions are appreciated. Cardiovascular: Regular rate and rhythm with a normal S1 and S2. No gallops, murmurs, or rubs. Normal PMI, no JVD. No pulse deficits. Respiratory: Lungs have equal breath sounds bilaterally, clear to auscultation and percussion. No rales, rhonchi or wheezes noted. No increased work of breathing, no retractions or nasal flaring. Abdomen/GI: Soft, non-tender, with normal bowel sounds. No distension or tympany. No guarding or rebound. No evidence of tenderness throughout. Back: No spinal tenderness. No costovertebral tenderness. Full range of motion. Skin: Warm, dry with normal turgor. Normal color with no rashes, no lesions, and no evidence of cellulitis. MS/ Extremity: Pulses equal, no cyanosis. Neurovascular intact. Full, normal range of motion. Neuro: Awake and alert, GCS 15, oriented to person, place, time, and situation. Cranial nerves II-XII grossly intact. Motor strength 5/5 in all extremities. Sensory grossly intact. Cerebellar exam normal. Normal gait. Psych: Awake, alert, with orientation to person, place and time. Behavior, mood, and affect are within normal limits. Vital Signs: 06/25 22:46 BP 156 / 92; Pulse 93; Resp 16 S; Temp 97.2(O); Pulse Ox 99% on R/A; Weight 68.04 kg jd3 (R); Height 5 ft. 10 in. (177.80 cm) (R); Pain 9/10; 22:46 Body Mass Index 21.52 (68.04 kg, 177.80 cm) jd3 MDM: 22:52 Patient medically screened. snw 06/26 00:05 Data reviewed: vital signs, nurses notes. Data interpreted: Pulse oximetry: on room air snw is 99 %. Interpretation: normal. Counseling: I had a detailed discussion with the patient and/or guardian regarding: the historical points, exam findings, and any diagnostic results supporting the discharge/admit diagnosis, the need for outpatient follow up, for definitive care. Response to treatment: There is no appreciated change of the patient's symptoms at this time. 06/25 23:03 Order name: Urine Dipstick--Ancillary (enter results); Complete Time: 23:11 ds4 06/25 23:04 Order name: Urine Microscopic Only EDMS Administered Medications: 06/25 23:05 Drug: Zithromax 1 grams Route: PO; mg2 23:18 Follow up: Response: No adverse reaction ea 23:05 Drug: Flagyl 2 grams Route: PO; mg2 23:17 Follow up: Response: No adverse reaction ea 23:05 Drug: Zofran (Ondansetron) 4 mg Route: PO; mg2 23:17 Follow up: Response: No adverse reaction ea 23:06 Drug: Rocephin (cefTRIAXone) 250 mg Route: IM; Site: right gluteus; ea 23:18 Follow up: Response: No adverse reaction ea Disposition: 06/26 05:28 Co-signature as Attending Physician, Norm Urbano MD I agree with the assessment and tw4 plan of care. Disposition: 06/25/20 23:12 Discharged to Home. Impression: Urethritis and urethral syndrome. - Condition is Stable. - Discharge Instructions: Sexually Transmitted Disease, Urethritis, Adult, Safe Sex. - Medication Reconciliation Form, Thank You Letter, Antibiotic Education, Prescription Opioid Use form. - Follow up: Emergency Department; When: As needed; Reason: Worsening of condition. Follow up: Private Physician; When: 2 - 3 days; Reason: Recheck today's complaints, Continuance of care, Re-evaluation by your physician. Signatures: [facility] Serene Dowling FNP-C FNP-Csnw Chantell Arnold, RN RN Reza Koenig, RN RN jd3 Norm Urbano MD MD tw4 Cory Malhotra, RN RN mg2 Corrections: (The following items were deleted from the chart) 06/25 23:19 23:12 06/25/2020 23:12 Discharged to Home. Impression: Urethritis and urethral ea syndrome. Condition is Stable. Forms are Medication Reconciliation Form, Thank You Letter, Antibiotic Education, Prescription Opioid Use. Follow up: Emergency Department; When: As needed; Reason: Worsening of condition. Follow up: Private Physician; When: 2 - 3 days; Reason: Recheck today's complaints, Continuance of care, Re-evaluation by your physician. snw
--- NOTE | 2020-06-25 23:12 | ER ---
Nurse's Notes [facility] Name: Anoop Mcguire Age: 19 yrs Sex: Male : 2000 Arrival Date: 06/25/2020 Time: 22:34 Bed 5 Private MD: Diagnosis: Urethritis and urethral syndrome Presentation: 06/25 22:44 Chief complaint: Patient states: "I think I may have an STD. I feel like my penis is on jd3 fire and I have been having discharge for about a week.". Coronavirus screen: Proceed with normal triage. Ebola Screen: Patient negative for fever greater than or equal to 101.5 degrees Fahrenheit, and additional compatible Ebola Virus Disease symptoms. Initial Sepsis Screen: Does the patient meet any 2 criteria? No. Patient's initial sepsis screen is negative. Does the patient have a suspected source of infection? No. Patient's initial sepsis screen is negative. Risk Assessment: Do you want to hurt yourself or someone else? Patient reports no desire to harm self or others. Onset of symptoms was June 25, 2020. 22:44 Method Of Arrival: Ambulatory j 22:44 Acuity: NICK 4 jd3 Historical: - Allergies: 22:46 No Known Allergies; jd3 - Home Meds: 22:46 None [Active]; jd3 - PMHx: 22:46 None; jd3 - PSHx: 22:46 Tonsillectomy; jd3 - Immunization history:: Adult Immunizations up to date. - Social history:: Smoking status: Patient reports the use of cigarette tobacco products, smokes one-half pack cigarettes per day. Screenin:10 Abuse screen: Denies threats or abuse. Nutritional screening: No deficits noted. ea Tuberculosis screening: No symptoms or risk factors identified. Fall Risk None identified. Assessment: 23:00 General: Appears in no apparent distress. Behavior is calm, cooperative, appropriate ea for age. Pain: Complains of pain in groin. Neuro: Level of Consciousness is awake, alert, obeys commands, Oriented to person, place, time. Respiratory: Airway is patent Respiratory effort is even, unlabored, Respiratory pattern is regular, symmetrical. Derm: Skin is pink, warm \\T\\ dry. 23:18 Reassessment: Patient and/or family updated on plan of care and expected duration. Pain ea level reassessed. Patient is alert, oriented x 3, equal unlabored respirations, skin warm/dry/pink. Discharge instruction given to patient, verbalized the understanding of instruction. Pt left ED ambulatory tolerating well. Vital Signs: 22:46 BP 156 / 92; Pulse 93; Resp 16 S; Temp 97.2(O); Pulse Ox 99% on R/A; Weight 68.04 kg jd3 (R); Height 5 ft. 10 in. (177.80 cm) (R); Pain 9/10; 22:46 Body Mass Index 21.52 (68.04 kg, 177.80 cm) jd3 ED Course: 22:34 Patient arrived in ED. bp1 22:45 Triage completed. jd3 22:45 Serene Dowling FNP-C [facility]. snw 22:45 Norm Urbano MD is Attending Physician. snw 22:46 Arm band placed on. jd3 22:51 Chantell Arnold, ELISABETH is Primary Nurse. ea 23:10 Patient has correct armband on for positive identification. Bed in low position. Call ea light in reach. 23:11 Urine Microscopic Only Sent. ds4 23:13 Urine Microscopic Only Sent. ds4 23:16 No provider procedures requiring assistance completed. Patient did not have IV access ea during this emergency room visit. Administered Medications: 23:05 Drug: Zithromax 1 grams Route: PO; mg2 23:18 Follow up: Response: No adverse reaction ea 23:05 Drug: Flagyl 2 grams Route: PO; mg2 23:17 Follow up: Response: No adverse reaction ea 23:05 Drug: Zofran (Ondansetron) 4 mg Route: PO; mg2 23:17 Follow up: Response: No adverse reaction ea 23:06 Drug: Rocephin (cefTRIAXone) 250 mg Route: IM; Site: right gluteus; ea 23:18 Follow up: Response: No adverse reaction ea Outcome: 23:12 Discharge ordered by . snw 23:18 Discharged to home ambulatory. ea 23:18 Condition: stable 23:18 Discharge instructions given to patient, Instructed on discharge instructions, follow up and referral plans. Demonstrated understanding of instructions, follow-up care. 23:19 Patient left the ED. ea Signatures: Serene Dowling FNP-C MARKETING ANALYTICS ANALYST-Yeseniaw Viktor Diaz ds4 Chantell Arnold, RN Reza Cope ea, RN RN jd3 Cory Malhotra RN ELISABETH mg2 Natalia Loyola Corrections: (The following items were deleted from the chart) 22:46 22:44 Acuity: NICK 3 jd3 jd3
[2020-06-25 23:26] VITALS: BP 156/92; TEMP 97.2; O2SAT 99
[2020-06-25 23:27] LABS: Urine Bacteria 20-50 /HPF (NONE SEEN)
[2020-06-25 23:28] LABS: Urine Amorphous Sediment 1+ /HPF (NONE SEEN); Urine Culture Reflex Order REFLEXED; Urine Mucus 1+ /HPF (NONE SEEN)
== END 2020-06-25 23:19 | disposition home or self-care (01) ==
LOC: ER 22:32
DX: N34.3 Urethral syndrome, unspecified (principal); N34.2 Other urethritis; F17.210 Nicotine dependence, cigarettes, uncomplicated
CPT/HCPCS: 81003; 81015; 87086; 87088; 96372; 99283; J0696